=== PATIENT | female | born 1955 | race Caucasian/White ===

== ENCOUNTER → 2018-11-21 12:59 | Outpatient (CLI) | payer OTHER, SELFPAY ==
--- NOTE | 2018-11-21 | DI.RAD.S_ITS ---
PROCEDURE: XR FOOT RT MIN 3V INDICATIONS: RIGHT FOOT PAIN TECHNIQUE: 3 views of the foot were acquired. COMPARISON: None. FINDINGS: Bones: Probable calcaneal fracture. There is deformity of the first proximal phalangeal head. No dislocation. No suspicious bony lesions. Mild talonavicular joint degeneration Soft tissues: No tibiotalar joint effusion. Achilles tendon appears normal. IMPRESSION: 1. Probable calcaneal fracture. 2. Deformity of the first proximal phalangeal head, most likely sequelae of old injury. Recommend clinical correlation. If there is focal pain/tenderness, acute injury superimposed on chronic injury may be present. Dictated by: Toña Sarah M.D. on 11/21/2018 at 17:34 Approved by: Toña Sarah M.D. on 11/21/2018 at 17:38
== END ==
PROVIDERS: PCP Internal Medicine; Visit Provider Podiatrist
DX: M79.671 Pain in right foot (principal); M84.377D Stress fracture, right toe(s), subsequent encounter for fracture with routine healing; M19.071 Primary osteoarthritis, right ankle and foot
CPT/HCPCS: 73630

== ENCOUNTER → 2018-12-05 08:04 | Outpatient (CLI) | payer OTHER, SELFPAY ==
--- NOTE | 2018-12-05 | DI.MRI.S_ITS ---
PROCEDURE: MR ANKLE RT WO CON INDICATIONS: Achilles tendinitis, right leg TECHNIQUE: Noncontrast sagittal T1 spin echo and T2 fast spin echo with fat saturation, axial proton density fast spin echo and T2 fast spin echo with fat saturation, coronal T1 spin echo and T2 fast spin echo with fat saturation through the ankle/hindfoot. COMPARISON: None. FINDINGS: Image quality: Diagnostic Bones and joints: There is a nondisplaced fracture identified involving the posterior aspect of the calcaneal tuberosity, which may represent a stress fracture. Moderate marrow edema of the calcaneal tuberosity is evident. No displaced fracture fragments are identified. The ankle mortise is well-maintained. No osteochondral defects are present involving the tibial plafond or talar dome. There are mild degenerative changes of the middle subtalar joint. There also are mild degenerative changes involving the superior aspect of the calcaneocuboid joint. A moderate size plantar calcaneal spur is present. Medial structures: The deltoid and spring ligaments are intact. The tibialis posterior tendon, flexor digitorum longus tendon, and flexor hallucis longus tendon are intact. There is a small amount of fluid contained within their corresponding tendon sheaths. The posterior tibial nerve through the region of the tarsal tunnel appears to be within normal limits. There is edema about the medial aspect of the ankle. Lateral structures: The anterior and posterior distal tibiofibular ligaments are intact. The anterior and posterior talofibular ligaments are intact. The calcaneofibular ligament is thickened, but intact. There is heterogeneity involving the peroneus brevis tendon, which is a somewhat wavy appearance and demonstrates increased signal along the posterior margin of the lateral malleolus. The possibility of a short segment longitudinal split tear is difficult to exclude. There is moderate thickening and increased signal noted involving the peroneus longus tendon along the posterior margin of the lateral malleolus. Trace fluid is contained within their corresponding tendon sheaths. Edema about the lateral aspect of the ankle is present. Mild increased signal within the sinus tarsi is present. Anterior structures: The tibialis anterior, extensor hallucis longus, and extensor digitorum longus tendons appear intact. Posterior and plantar structures: Prominent thickening of the distal Achilles tendon is identified with possible low-grade intrasubstance partial thickness tearing at its insertion. A moderate amount of fluid is contained within the retrocalcaneal bursa. There is edema noted within Kager's fat pad. The plantar fascia is within normal limits. IMPRESSION: 1. Nondisplaced fracture involving the posterior aspect of the calcaneal tuberosity may represent a stress fracture. 2. Low-grade partial-thickness tearing and moderate tendinopathy of the distal Achilles tendon. No full-thickness tear. 3. Mild to moderate peroneus brevis and peroneus longus tendinopathy with corresponding minimal tenosynovitis. There may be a short segment longitudinal split tear of the peroneus brevis tendon. 4. Mild tenosynovitis involving the medial flexor tendons. 5. Ligamentous degeneration versus an acute ligamentous sprain of the calcaneofibular ligament. No full-thickness tear. 6. Moderate edema about the ankle. 7. Mild degenerative changes of the hindfoot joints as described. Dictated by: Ronan Borjas M.D. on 12/05/2018 at 8:46 Approved by: Ronan Borjas M.D. on 12/05/2018 at 9:21
== END ==
PROVIDERS: Family Provider Internal Medicine; PCP Internal Medicine; Visit Provider Podiatrist
DX: M76.61 Achilles tendinitis, right leg (principal); S92.044A Nondisplaced other fracture of tuberosity of right calcaneus, initial encounter for closed fracture; S86.011A Strain of right Achilles tendon, initial encounter; M65.871 Other synovitis and tenosynovitis, right ankle and foot; R60.0 Localized edema
CPT/HCPCS: 73721

== ENCOUNTER → 2019-01-02 11:29 | Outpatient (CLI) | payer OTHER, SELFPAY ==
[2019-01-02 15:58] LABS: Free T3, Triiodothyronine Free 3.55 pg/mL (2.77-5.27); Free T4, Direct Thyroxine 1.35 ng/dL (0.78-2.19)
[2019-01-02 16:11] LABS: Thyroid Stimulating Hormone 1.73 uIU/mL (0.47-4.68)
== END ==
PROVIDERS: PCP Internal Medicine; Visit Provider Internal Medicine
DX: S92.009S Unspecified fracture of unspecified calcaneus, sequela (principal)
CPT/HCPCS: 36415; 84439; 84443; 84481

== ENCOUNTER → 2019-01-09 12:49 | Outpatient (CLI) | payer OTHER, SELFPAY | PROVIDERS: PCP Internal Medicine; Visit Provider Internal Medicine | DX: M85.851 Other specified disorders of bone density and structure, right thigh (principal); Z78.0 Asymptomatic menopausal state; S92.009A Unspecified fracture of unspecified calcaneus, initial encounter for closed fracture; Z82.62 Family history of osteoporosis; Z85.3 Personal history of malignant neoplasm of breast | CPT/HCPCS: 77080 ==

== ENCOUNTER → 2019-01-17 11:30 | Outpatient (CLI) | payer OTHER, SELFPAY ==
--- NOTE | 2019-01-17 | DI.RAD.S_ITS ---
PROCEDURE: XR CALCANEOUS RT MIN 2V INDICATIONS: XR 2V RT CALCANEALUS TECHNIQUE: Two views of the calcaneus were acquired. COMPARISON: None. FINDINGS: Bones: No fractures or dislocations. No suspicious bony lesions. Prominent plantar calcaneal spur. Spurring and dystrophic ossification seen at the Achilles insertion Soft tissues: No suspicious calcifications. Prominent plantar hind foot soft tissue swelling. . IMPRESSION: Distal Achilles tendinopathy with associated posterior calcaneal spur. Large plantar calcaneal spur. Prominent hindfoot plantar subcutaneous soft tissue swelling. Dictated by: Chano Pabon M.D. on 01/17/2019 at 13:17 Approved by: Chano Pabon M.D. on 01/17/2019 at 13:18
== END ==
PROVIDERS: PCP Internal Medicine; Visit Provider Podiatrist
DX: M77.31 Calcaneal spur, right foot (principal); M79.89 Other specified soft tissue disorders; M67.971 Unspecified disorder of synovium and tendon, right ankle and foot
CPT/HCPCS: 73650

== ENCOUNTER → 2022-09-04 11:50 | Outpatient (CLI) | payer OTHER, SELFPAY ==
--- NOTE | 2022-09-04 | DI.CT.S_ITS ---
PROCEDURE: CT SINUS SCREEN WO CON INDICATIONS: CHRONIC PANSINUSITIS TECHNIQUE: Noncontrast 3.0 mm axial images acquired from the frontal sinuses to the mid-sella, with coronal and sagittal reformats. For radiation dose reduction, the following was used: automated exposure control, adjustment of mA and/or kV according to patient size. COMPARISON: None. FINDINGS: Image quality: Excellent. Maxillary Sinuses: No bony remodeling or destruction. Sinuses are clear. Ethmoid Air Cells: No bony remodeling or destruction. Sinuses are clear. Sphenoid Sinuses: No bony remodeling or destruction. Sinuses are clear. Frontal Sinuses: No bony remodeling or destruction. Sinuses are clear. Ostiomeatal Complexes: Ostiomeatal complexes are patent, yet they are constitutionally narrowed. No Km cells. Miscellaneous: Visualized intra-orbital contents are normal. There are bilateral kelly bullosa. There is mild S shaped nasal septal deviation. IMPRESSION: No significant active paranasal sinus disease can be seen. Bilateral kelly bullosa. Mild S shaped nasal septal deviation. Patent, yet constitutionally narrowed ostiomeatal complexes. Dictated by: Portillo Charles M.D. on 09/04/2022 at 13:35 Approved by: Portillo Charles M.D. on 09/04/2022 at 13:36
== END ==
PROVIDERS: PCP Registered Nurse; Referring Provider Otolaryngology; Visit Provider Otolaryngology
DX: J32.4 Chronic pansinusitis (principal); R05.3 Chronic cough; R09.82 Postnasal drip; J34.2 Deviated nasal septum; J34.3 Hypertrophy of nasal turbinates
CPT/HCPCS: 70486